=== PATIENT | female | born 1970 | race African-American/Black ===

== ENCOUNTER 2017-01-27 08:33 | Inpatient (IN) | payer OTHER ==
[2017-01-27 10:41] VITALS: BMI 26.3
--- NOTE | 2017-01-27 12:07 | HP ---
CIWA Score - CIWA Score Nausea/Vomitin Muscle Tremors: 3 Anxiety: 3 Agitation: 3 Paroxysmal Sweats: 2 Orientation: 0-Oriented Tacttile Disturbances: 2-Mild Itch/Numbness/Burn Auditory Disturbances: 2-Mild Harshness/Frighten Visual Disturbances: 2-Mild Sensitivity Headache: 2-Mild CIWA-Ar Total Score: 22 Admission ROS BHS - HPI Chief Complaint: i need help to stop drinking for detox Allergies/Adverse Reactions: Allergies Allergy/AdvReac Type Severity Reaction Status Date / Time No Known Allergies Allergy Verified 01/27/17 10:52 History of Present Illness: this 47 years old female with alcohol dependence,seeking detox,seen in [place] last night receiving librium, refer for detox last treatment [facility] 07/19/15 to 07/23/15 syncope depression longest period of sobriety 5 years Exam Limitations: No Limitations - Ebola screening Have you traveled outside of the country in the last 21 days: No Have you had contact with anyone from an Ebola affected area: No Have you been sick,other than usual withdrawal symptoms: No - Review of Systems Constitutional: Loss of Appetite, Malaise, Night Sweats, Changes in sleep, Weakness, Unintentional Wgt. Loss EENT: reports: Nose Congestion Respiratory: reports: No Symptoms reported Cardiac: reports: No Symptoms Reported GI: reports: Diarrhea, Nausea, Vomiting, Abdominal cramping : reports: No Symptoms Reported Musculoskeletal: reports: Back Pain, Muscle Pain Integumentary: reports: Dryness Neuro: reports: Headache, Tremors Endocrine: reports: No Symptoms Reported Hematology: reports: No Symptoms Reported Psychiatric: reports: Judgement Intact, Mood/Affect Appropiate, Orientated x3, Depressed Patient History - Patient Medical History Hx Anemia: Yes (NOT CURRENTLY ON MED) Hx Asthma: No Hx Chronic Obstructive Pulmonary Disease (COPD): No Hx Cancer: No Hx Cardiac Disorders: No Hx Congestive Heart Failure: No Hx Hypertension: No Hx Hypercholesterolemia: No Hx Pacemaker: No HX Cerebrovascular Accident: No Hx Seizures: No Hx Dementia: No Hx Diabetes: No Hx Gastrointestinal Disorders: No Hx Liver Disease: No Hx Genitourinary Disorders: No Hx Sexually Transmitted Disorders: No Hx Renal Disease (ESRD): No Hx Thyroid Disease: No Hx Human Immunodeficiency Virus (HIV): No (NEGATIVE HX last 12/20) Hx Hepatitis C: No Hx Depression: Yes (on med) Hx Suicide Attempt: Yes (overdose 01/11/17) Hx Bipolar Disorder: No Hx Schizophrenia: No Other Medical History: no suicidal,no homicidal - Patient Surgical History Past Surgical History: No Hx Neurologic Surgery: No Hx Cataract Extraction: No Hx Cardiac Surgery: No Hx Lung Surgery: No Hx Breast Surgery: No Hx Breast Biopsy: No Hx Abdominal Surgery: No Hx Appendectomy: No Hx Cholecystectomy: No Hx Genitourinary Surgery: No Hx Section: No Hx Orthopedic Surgery: No Anesthesia Reaction: No - PPD History Previous Implant?: Yes Documented Results: Negative w/o proof Implanted On Prior R Admission?: Yes Date: 07/21/15 PPD to be Administered?: Yes - Reproductive History Patient is a Female of Child Bearing Age (11 -55 yrs old): Yes Last Menstrual Period: 11/19/16 Patient : No - Smoking Cessation Smoking history: Never smoked Hx Chewing Tobacco Use: No - Substance & Tx. History Hx Alcohol Use: Yes Hx Substance Use: No Substance Use Type: Alcohol Hx Substance Use Treatment: Yes (07/19/15 to 07/23/15) - Substances Abused Alcohol Route: Oral Frequency: Daily Amount used: 1 qt vodka Age of first use: 17 Date of Last Use: 01/26/17 Family Disease History - Family Disease History Family History: Denies Admission Physical Exam BHS - Vital Signs Vital Signs: Vital Signs - 24 hr 01/27/17 10:39 Temperature 97.1 F L Pulse Rate 84 Respiratory 20 Rate Blood Pressure 142/85 - Physical General Appearance: Yes: Moderate Distress, Tremorous, Irritable, Sweating, Anxious HEENTM: Yes: Normal ENT Inspection, TIMOTHY, Pharynx Normal Respiratory: Yes: Lungs Clear, Normal Breath Sounds, No Respiratory Distress Neck: Yes: Within Normal Limits, Supple, Trachea in good position Breast: Yes: Breast Exam Deferred Cardiology: Yes: Within Normal Limits, Regular Rhythm, Regular Rate, S1, S2 Abdominal: Yes: Within Normal Limits, Normal Bowel Sounds, Non Tender, Soft Genitourinary: Yes: Within Normal Limits Musculoskeletal: Yes: Back pain Extremities: Yes: Tremors Neurological: Yes: senior environmental scientist II-XII NML intact, Alert, Motor Strength 5/5 Integumentary: Yes: Dry Lymphatic: Yes: Within Normal Limits - Diagnostic (1) Alcohol dependence with uncomplicated withdrawal Current Visit: No Status: Acute (2) History of anemia Current Visit: No Status: Chronic (3) Depression Current Visit: Yes Status: Acute Cleared for Admission [facility] - Detox or Rehab [facility] Level of Care: Medically Managed Detox Regimen/Protocol: Librium [facility] Breath Alcohol Content Breath Alcohol Content: 0 Urine Pregancy Test - Result Urine Test Results: Negative- NO Line Present Urine Drug Screen - Results Drug Screen Negative: No Urine Drug Screen Results: BZO-Benzodiazepines
[2017-01-27] MEDS ORDERED: MENTHOL/PHENOL 1 EACH UD MM PRN (12:16)
[2017-01-27] MEDS ORDERED: hydrOXYzine PAMOATE 50 MG CAPSULE (FP) PO PRN (12:16)
[2017-01-27] MEDS ORDERED: chlordiazePOXIDE HCL 25 MG CAPSULE PO PRN (12:16)
[2017-01-27] MEDS ORDERED: guaiFENesin/D-METHORPHAN HB 10 ML UNIT-DOSE CUPS PO PRN (12:16)
[2017-01-27] MEDS ORDERED: chlordiazePOXIDE HCL 25 MG CAPSULE PO ONE (12:16)
[2017-01-27] MEDS ORDERED: MAG HYDROX/AL HYDROX/SIMETH 30 ML UNIT-DOSE CUP PO PRN (12:16)
[2017-01-27] MEDS ORDERED: IBUPROFEN 400 MG TABLET (FP) PO PRN (12:16)
[2017-01-27] MEDS ORDERED: diphenhydrAMINE HCL 50 MG CAPSULE PO PRN (12:16)
[2017-01-27] MEDS ORDERED: ACETAMINOPHEN 325 MG TABLET (FP) PO PRN (12:16)
[2017-01-27] MEDS ORDERED: MAGNESIUM CITRATE 300 ML BOTTLE PO PRN (12:16)
[2017-01-27] MEDS ORDERED: LOPERAMIDE HCL 2 MG CAPSULE PO PRN (12:16)
[2017-01-27] MEDS ORDERED: P-EPHED 60MG/TRIPROLIDI 2.5MG TABLET PO PRN (12:16)
[2017-01-27] MEDS ORDERED: MAGNESIUM HYDROX 2400MG/30ML ORAL SUSPENSION 30 ML CUP PO PRN (12:16)
[2017-01-27] MEDS: chlordiazePOXIDE HCL 25 MG CAPSULE PO SCH ×3 (17:51→22:15)
[2017-01-27] MEDS ORDERED: THIAMINE HCL 100 MG TABLET (FP) PO SCH (22:00)
[2017-01-27 23:17] LABS: URINE APPEARANCE CLEAR; URINE BILIRUBIN NEGATIVE (NEGATIVE); URINE BLOOD 1+ (NEGATIVE); URINE COLOR AMBER; URINE GLUCOSE (UA) NEGATIVE (NEGATIVE); URINE KETONE 1+ (NEGATIVE); URINE LEUK ESTERASE TRACE (NEGATIVE); URINE NITRITE NEGATIVE (NEGATIVE)
[2017-01-27 23:21] LABS: URINE PROTEIN 1+ (NEGATIVE)
[2017-01-27 23:26] LABS: URINE BACTERIA RARE /hpf (NONE SEEN); URINE MUCUS MANY; URINE RBC 2 /hpf (0-3); URINE WBC 19 /hpf (3-5)
[2017-01-28] MEDS: chlordiazePOXIDE HCL 25 MG CAPSULE PO SCH ×2 (06:00→10:27)
--- NOTE | 2017-01-28 09:40 | CONSULT ---
[facility] Psychiatric Consult - Data Date of interview: 01/28/17 Admission source: [facility] Identifying data: This is 47 years old female with psychiatric hospitalizatiuon hiustory intoxicated with: Alcohol Substance Abuse History: Drug Screen Negative: No. Urine Drug Screen Results: BZO-Benzodiazepines. - Smoking Cessation. Smoking history: Never smoked. Hx Chewing Tobacco Use: No. - Substance & Tx. History. Hx Alcohol Use: Yes. Hx Substance Use: No. Substance Use Type: Alcohol. Hx Substance Use Treatment: Yes (07/19/15 to 07/23/15). - Substances Abused. Alcohol. Route: Oral. Frequency: Daily. Amount used: 1 qt vodka. Age of first use: 17. Date of Last Use: 01/26/17 Medical History: Anemia history Psychiatric History: Patient reports history of depression with most recent psychiatric admission on mopre then 10m years ago, reports currently bstable on : Abilify 15mg poqd. Zoloft 200mg po qd. Remeron 45mg po qhs Physical/Sexual Abuse/Trauma History: Denies Additional Comment: Drug Screen Negative: No. Urine Drug Screen Results: BZO- Benzodiazepines Mental Status Exam - Mental Status Exam Alert and Oriented to: Person Cognitive Function: Fair Patient Appearance: Unkempt Mood: Sad Affect: Flat Patient Behavior: Sedated Speech Pattern: Delayed Voice Loudness: Mildly Soft/Quiet Thought Process: Circumstantial Thought Disorder: Being Controlled Hallucinations: Denies Suicidal Ideation: Denies Homicidal Ideation: Denies Insight/Judgement: Fair Sleep: Difficulty falling asleep Appetite: Fair Muscle strength/Tone: Normal Gait/Station: Normal Additional Comments: Abilify 15mg poqd. Zoloft 200mg po qd. 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 Zoloft 200mg po qd. Remeron 45mg po qhs
[2017-01-28] MEDS ORDERED: PRENATAL VITAMINS W/ FOLIC ACID TABLET (FP) PO SCH (10:00)
[2017-01-28] MEDS ORDERED: SERTRALINE HCL 50 MG TABLET (FP) PO SCH (10:00)
[2017-01-28] MEDS ORDERED: ARIPiprazole 15 MG TABLET PO SCH (10:00)
[2017-01-28 10:20] LABS: MCH 28.6 pg (25.7-33.7); MCHC 33.2 g/dl (32.0-36.0); MEAN CELL VOLUME 86.1 fl (80-96); MEAN PLT VOLUME 9.1 fl (7.5-11.1); PLATELET COUNT 212 K/MM3 (134-434); RDW 14.8 % (11.6-15.6); WHITE BLOOD COUNT 5.5 K/mm3 (4.0-10.0)
--- NOTE | 2017-01-28 10:52 | PN ---
[facility] CIWA - CIWA Score Nausea/Vomitin-No Nausea/No Vomiting Muscle Tremors: 4-Moderate,w/Arms Extend Anxiety: 3 Agitation: 4-Moderately Restless Paroxysmal Sweats: 3 Orientation: 0-Oriented Tacttile Disturbances: 0-None Auditory Disturbances: 0-None Visual Disturbances: 0-None Headache: 1-Very Mild CIWA-Ar Total Score: 15 S Progress Note (SOAP) Subjective: anxiety interrupted sleep irritable sweats Objective: 01/28/17 12:19 Vital Signs Temperature 98.8 F 01/28/17 10:00 Pulse Rate 90 01/28/17 10:00 Respiratory Rate 16 01/28/17 10:00 Blood Pressure 115/83 01/28/17 10:00 O2 Sat by Pulse Oximetry (%) Laboratory Tests 01/27/17 01/28/17 01/28/17 20:00 05:45 05:45 WBC 5.5 D RBC 4.03 Hgb 11.5 Hct 34.7 MCV 86.1 MCH 28.6 MCHC 33.2 RDW 14.8 Plt Count 212 D MPV 9.1 Sodium 139 Potassium 3.6 Chloride 98 Carbon Dioxide 29 Anion Gap 12 BUN 7 Creatinine 0.5 L D Creat Clearance w eGFR > 60 Random Glucose 83 Calcium 8.7 Total Bilirubin 1.3 H D AST 71 H D ALT 36 D Alkaline Phosphatase 148 H D Total Protein 7.6 Albumin 3.9 Urine Color Basia Urine Appearance Clear Urine pH 5.0 Ur Specific [place] >= 1.030 H Urine Protein 1+ H Urine Glucose (UA) Negative Urine Ketones 1+ H Urine Blood 1+ H Urine Nitrite Negative Urine Bilirubin Negative Urine Urobilinogen 2.0 H Ur Leukocyte Esterase Trace Urine RBC 2 Urine WBC 19 Ur Epithelial Cells Rare Urine Bacteria Rare Urine Mucus Many RPR Titer 01/28/17 05:45 WBC RBC Hgb Hct MCV MCH MCHC RDW Plt Count MPV Sodium Potassium Chloride Carbon Dioxide Anion Gap BUN Creatinine Creat Clearance w eGFR Random Glucose Calcium Total Bilirubin AST ALT Alkaline Phosphatase Total Protein Albumin Urine Color Urine Appearance Urine pH Ur Specific [place] Urine Protein Urine Glucose (UA) Urine Ketones Urine Blood Urine Nitrite Urine Bilirubin Urine Urobilinogen Ur Leukocyte Esterase Urine RBC Urine WBC Ur Epithelial Cells Urine Bacteria Urine Mucus RPR Titer Nonreactive elevated ast; tylenol d/c repeat ast/alt repeat urine awake/alert ambulating no acute distress Assessment: 01/28/17 12:20 withdrawal sx Plan: continue detox increase fluids f/u pending labs
[2017-01-28 11:08] LABS: ALBUMIN 3.9 g/dl (3.4-5.0); ALK PHOS 148 U/L (45-117); ANION GAP 12 (8-16); BILIRUBIN,TOTAL 1.3 mg/dL (0.2-1.0); CALCIUM 8.7 mg/dL (8.5-10.1); CO2 29 mmol/L (21-32); CREATININE 0.5 mg/dL (0.55-1.02); GLUCOSE,RANDOM 83 mg/dL (74-106); SGOT/AST 71 U/L (15-37); SGPT/ALT 36 U/L (12-78); TOT PROT 7.6 g/dl (6.4-8.2)
--- NOTE | 2017-01-28 12:22 | EKG ---
Test Reason : Blood Pressure : / mmHG Vent. Rate : 074 BPM Atrial Rate : 074 BPM P-R Int : 146 ms QRS Dur : 086 ms QT Int : 438 ms P-R-T Axes : 077 031 015 degrees QTc Int : 486 ms NORMAL SINUS RHYTHM WITH SINUS ARRHYTHMIA PROLONGED QT ABNORMAL ECG NO PREVIOUS ECGS AVAILABLE Confirmed by ASHANTI AZEVEDO, FELIPA ([id number]) on 01/28/2017 12:21:49 PM Referred By: Confirmed By:FELIPA BURRELL MD
[2017-01-28] MEDS ORDERED: chlordiazePOXIDE HCL 25 MG CAPSULE PO SCH (17:00)
[2017-01-28 18:26] VITALS: BP 136/87; PULSE 91; TEMP 98.2
--- NOTE | 2017-01-28 19:11 | PN ---
S Progress Note Note: called by nurse,patient did not want to complete treatment,signed release ama, did not want to wait,seen by counselor, mrs Henley nursing supervisor wet end notified
--- NOTE | 2017-01-28 19:14 | DS ---
[facility] Detox Discharge Summary Admission Date: 01/27/17 Discharge Date: 01/28/17 - History Present History: Alcohol Dependence Additional Comments: patient did not want to complete treatment,signed release ama,did not want to wait,seen by counselor, mrs de la garza nursing commissary production supervisor notified by nurse Pertinent Past History: anemia depression - Physical Exam Results Vital Signs: Vital Signs Temperature 98.2 F 01/28/17 18:26 Pulse Rate 91 H 01/28/17 18:26 Respiratory Rate 20 01/28/17 18:26 Blood Pressure 136/87 01/28/17 18:26 O2 Sat by Pulse Oximetry (%) Pertinent Admission Physical Exam Findings: withdrawal symptom - Medication Discharge Medications: Ambulatory Orders Aripiprazole [Abilify -] 15 mg PO DAILY 01/27/17 Mirtazapine [Remeron [DO NOT STOCK]] 45 mg PO HS 01/27/17 Aripiprazole [Abilify -] 15 mg PO DAILY #30 tablet 01/28/17 Aripiprazole [Abilify -] 15 mg PO DAILY #30 tablet 01/28/17 Aripiprazole [Abilify -] 15 mg PO DAILY #30 tablet 01/28/17 Mirtazapine [Remeron -] 45 mg PO HS #30 tab 01/28/17 Mirtazapine [Remeron [DO NOT STOCK]] 45 mg PO HS #30 tab 01/28/17 Mirtazapine [Remeron [DO NOT STOCK]] 45 mg PO HS #30 tab 01/28/17 Sertraline HCl [Zoloft] 100 mg PO AM #30 tablet 01/28/17 Sertraline HCl [Zoloft] 200 mg PO AM #30 tablet 01/28/17 Sertraline HCl [Zoloft] 200 mg PO AM 30 Days 01/28/17 Sertraline HCl [Zoloft] 200 mg PO HS #30 tab 01/28/17 - Diagnosis (1) Alcohol dependence with uncomplicated withdrawal Current Visit: No Status: Acute (2) History of anemia Current Visit: No Status: Chronic (3) Depression Current Visit: Yes Status: Acute - AMA Did Patient Leave Against Medical Advice: Yes
[2017-01-28 19:39] LABS: URINE APPEARANCE CLEAR; URINE BILIRUBIN NEGATIVE (NEGATIVE); URINE BLOOD 1+ (NEGATIVE); URINE COLOR YELLOW; URINE GLUCOSE (UA) NEGATIVE (NEGATIVE); URINE KETONE NEGATIVE (NEGATIVE); URINE LEUK ESTERASE TRACE (NEGATIVE); URINE NITRITE NEGATIVE (NEGATIVE); URINE PROTEIN NEGATIVE (NEGATIVE); URINE UROBILINOGEN NEGATIVE mg/dL (0.2-1.0)
[2017-01-28 21:56] LABS: URINE MUCUS RARE; URINE RBC 9 /hpf (0-3); URINE WBC 2 /hpf (3-5)
[2017-01-28] MEDS ORDERED: MIRTAZAPINE 15 MG TABLET (FP) PO SCH (22:00)
[2017-01-29] MEDS ORDERED: chlordiazePOXIDE 5 MG CAPSULE PO SCH (17:00)
[2017-01-30] MEDS ORDERED: chlordiazePOXIDE HCL 10 MG CAPSULE PO SCH (17:00)
== END 2017-01-28 07:10 | disposition left against medical advice (07) | DRG 770 ==
LOC: YASAS 08:33 → Y6N 12:17
PROVIDERS: ADMIT Internal Medicine; ATTEND Internal Medicine
PROC: HZ2ZZZZ Detoxification Services for Substance Abuse Treatment (ICD-10-PCS; principal; 2017-01-27)
DX: F10.230 Alcohol dependence with withdrawal, uncomplicated (principal); F10.24 Alcohol dependence with alcohol-induced mood disorder; F32.9 Major depressive disorder, single episode, unspecified; R74.0 Nonspecific elevation of levels of transaminase and lactic acid dehydrogenase [LDH]; Z86.2 Personal history of diseases of the blood and blood-forming organs and certain disorders involving the immune mechanism; Z91.5 Personal history of self-harm
CPT/HCPCS: 36415; 80053; 81003; 81015; 85027; 86593; 93005; 93010